=== PATIENT | male | born 1990 | race Caucasian/White ===

== ENCOUNTER → 2016-05-19 | Outpatient (CLI) | payer BC ==
[~2016-05-19] VITALS: Ht 185.4 cm; Wt 116.6 kg
[~2016-05-19] MED LIST: CIPRO500 MG PO; FLAGYL500 MG PO; NAPROXEN500 MG PO; TYLENOL WITH C1 EACH PO; ZOFRAN ODT4 MG PO
== END | disposition home or self-care (01) ==
LOC: AMB 10:47
PROC: 0DBE8ZX Excision of Large Intestine, Via Natural or Artificial Opening Endoscopic, Diagnostic (ICD-10-PCS; principal; 2016-05-19)
DX: R19.7 Diarrhea, unspecified (principal); R11.2 Nausea with vomiting, unspecified; R10.9 Unspecified abdominal pain; R59.9 Enlarged lymph nodes, unspecified; K64.9 Unspecified hemorrhoids; F17.200 Nicotine dependence, unspecified, uncomplicated
CPT/HCPCS: 88305; B4087; J2250; J3010